=== PATIENT | male | born 1980 | race Caucasian/White ===

== ENCOUNTER 2017-05-08 16:00 | Inpatient (IN) | payer OTHER ==
[~2017-05-08] VITALS: Ht 167.6 cm; Wt 81.6 kg
--- NOTE | ~2017-05-08 | EKG ---
PATIENT: BRANT MADSEN UNIT #: [id number] Ventricular Rate: 67 BPM Atrial Rate: 67 BPM P-R Interval: 180 ms QRS Duration: 90 ms Q-T Interval: 414 ms QTC Calculation(Bezet): 437 ms P Buena: 42 degrees Calculated R Buena: 21 degrees Calculated T Buena: 29 degrees Diagnosis Line: Normal sinus rhythm Diagnosis Line: Normal ECG Diagnosis Line: No previous ECGs available Diagnosis Line: Confirmed by RONNIE BARRERA MD ([id number]) on Diagnosis Line: 05/12/2017 5:08:34 PM INTERPRETING MD: BRUCE GOLD
--- NOTE | ~2017-05-08 | HP ---
Unit #: [id number] #: [id number] Patient: BRANT MADSEN [id number] [place] [address] [id number] I MR#: [id number] NAME: BRANT MADSEN ROOM: [facility] [place] Age: 36 Sex: M Admission Date: 05/08/2017 : 1980 Attending Physician: Manav Mckeon M.D. Admitting Physician: Manav Mckeon M.D. Primary Care Physician: Generic Doctor Not In System HISTORY AND PHYSICAL HISTORY OF PRESENT ILLNESS The patient is a 36-year-old male who says he is here due to depression and being out of his medications for about 5 days. PAST MEDICAL HISTORY Significant for seizures and COPD. PAST SURGICAL HISTORY None. SOCIAL HISTORY Positive for smoking. ALLERGIES Tramadol, Toradol, and prednisone. FAMILY HISTORY Noncontributory. REVIEW OF SYSTEMS CONSTITUTIONAL: No fever or chills. HEENT: Denies any sore throat, ear pain or runny nose. CARDIOVASCULAR: Denies chest pain, irregular heart rhythm or palpitations. CHEST: Denies shortness of breath or cough. No hemoptysis. GASTROINTESTINAL: Denies nausea, vomiting, diarrhea or chronic constipation. ENDOCRINE: Denies history of increased thirst or urination. No recent significant weight loss or gain. GENITOURINARY: Denies dysuria, frequency, or hematuria. SKIN: Denies any rashes. HEMATOLOGIC: Denies history of increased bleeding or bruising. MUSCULOSKELETAL: Denies any hot, swollen joints. No generalized muscle pain. NEUROLOGIC: Denies problems with vision or speech. No frequent, severe headaches. No numbness, tingling or weakness in any extremities. Denies loss of bladder or bowel control. CURRENT MEDICATIONS 1. Spironolactone 25 mg twice daily. 2. Depakote 500 mg 3 times daily. 3. Coreg 25 mg twice daily. 4. Keppra 750 mg twice daily. 5. Isosorbide mononitrate 60 mg daily. Unit #: [id number] #: [id number] Patient: BRANT MADSEN 6. Tudorza 400 mcg twice daily. 7. Potassium ER 10 mEq twice daily. 8. Lisinopril HCTZ 20/25 daily. 9. Albuterol nebulizer q. 6 hours p.r.n. 10. Amlodipine 10 mg daily. 11. Ipratropium nebulizer 0.02% q. 4 hours p.r.n. 12. Dulera inhaler 2 puffs twice daily. 13. Methocarbamol 750 mg t.i.d. p.r.n. 14. Loratadine 25 mg p.o. twice daily. 15. Topamax 100 mg p.o. twice daily. 16. Amitriptyline 100 mg p.o. q.h.s. 17. Methadone 10 mg daily. 18. Imitrex 100 mg p.o. q. 2 hours p.r.n. not to exceed 2 in 24 hours. 19. Incruse inhaler daily. PHYSICAL EXAMINATION GENERAL: Alert, oriented, no acute distress. The patient somewhat tremulous. VITAL SIGNS: Temperature 97.9, blood pressure 107/73, heart rate 73, respirations 16. HEIGHT: 5 feet 6 inches. WEIGHT: 180 pounds. SKIN: Warm, dry. No rashes or lesions, track ring, cuts, etc. Multiple tattoos on right upper arm, left upper arm, chest, and right lower extremity. HEENT: Normocephalic. TMs not viewed. Oronasal passages clear. Conjunctivae clear. PERRLA. EOM is intact. NECK: No lymphadenopathy or thyromegaly. HEART: Regular rate and rhythm. No murmur, gallop, or rub. LUNGS: Clear to auscultation bilaterally. ABDOMEN: Soft, nontender without palpable masses or hepatosplenomegaly. : Not assessed. EXTREMITIES: No evidence of cyanosis, clubbing, or edema. Moves all extremities independently without obvious deficit. NEUROLOGICAL: Grossly within normal limits. Cranial Nerves: II: Visual diego are intact. III, IV AND : Extraocular movements are intact. Pupils are equal, round and reactive to light. V: Facial sensation is grossly normal. VII: Facial movements and expression are normal. VIII: Auditory acuity grossly intact. IX, X: Uvula is midline. Phonation is normal. XI: Patient shrugs shoulders and turns head normally. XII: Tongue protrudes in the midline. Sensory and Motor Function: Sensory and motor sensation is grossly normal. Motor: moves all extremities well. Coordination: Gait is normal. Deep Tendon Reflexes: Intact. IMPRESSION Psychiatric admission. RECOMMENDATIONS PSYCHIATRIC: Per psychiatrist. MEDICAL: No contraindication to participating in facility's activities. MEDICAL PROGNOSIS Good. Unit #: [id number] #: [id number] Patient: BRANT MADSEN Dictated by... Paula James A.P.R.N. CGJ/bzg TD: 05/09/2017 15:12 JOB #: [id number] HISTORY AND PHYSICAL Page 1 of 1 X Paula James APR X HISTORY AND PHYSICAL
--- NOTE | ~2017-05-08 | CO ---
Unit #: [id number] #: [id number] Patient: ADONIS MADSEN [id number] [facility] [address] [place] [address] [id number] I MR#: [id number] NAME: ADONIS MADSEN ROOM: [facility] Age: 36 Sex: M Admission Date: 05/08/2017 : 1980 Attending Physician: Manav Mckeon M.D. Primary Care Physician: Maday Doctor Not In System Consultation Date: 05/11/2017 CONSULTATION REPORT This is a followup to the original consult. HISTORY OF PRESENT ILLNESS Adonis reports that he had been treated for elevated blood pressure per his med rec. He was taking lisinopril, Aldactone, Coreg, Imdur, Norvasc and clonidine; however, during this admission, his blood pressures have been low. This morning, his blood pressures are 90/48, 90/58, 108/58, 90/52, and heart rates have been 65, 58 and 65. He does report feeling lightheaded if he moves too quickly and has been trying to rest and increase his fluid intake. He does also report a history of blacking out and waking up lying on the floor. He has no complaints. PHYSICAL EXAMINATION CARDIAC: Regular rate and rhythm. No murmurs, gallops, or rubs. RESPIRATORY: Clear to auscultation bilaterally. ASSESSMENT AND PLAN Hypotension. We will continue to check blood pressures; however, at this time, we can change blood pressure checks to every 2 hours while awake. He also will use a wheelchair and he understands the risks of moving too quickly. Please notify if blood pressures continue to fall, we will continue to hold all of his blood pressure medications until further evaluated. Dictated by... Maura Nguyen/olivia TD: 05/12/2017 00:37 JOB #: [id number] CONSULTATION REPORT Page 1 of 1 X NIHARIKA AMIN APRN X CONSULTATION REPORT
--- NOTE | ~2017-05-08 | CO ---
Unit #: [id number] #: [id number] Patient: BRANT MADSEN [id number] [facility] [address] [place] [address] [id number] I MR#: [id number] NAME: BRANT MADSEN ROOM: [facility] Age: 36 Sex: M Admission Date: 05/08/2017 : 1980 Attending Physician: Manav Mckeon M.D. Primary Care Physician: Generic Doctor Not In System CONSULTATION REPORT REASON FOR CONSULT Patient use of multiple inhalers. SUBJECTIVE "I have COPD and I have lots of inhalers and mini-nebulizers that I use." OBJECTIVE Vital signs within normal limits. Noted patient on ipratropium, Dulera, Incruse, albuterol inhaler, Tudorza, albuterol nebulizer. ASSESSMENT Chronic obstructive pulmonary disease with duplicate inhaler use. PLAN Patient will stop Tudorza. May continue other inhalers as ordered. Dictated by... Maura Fabian/fabiana TD: 05/09/2017 16:37 JOB #: [id number] CONSULTATION REPORT Page 1 of 1 X Paula James APR X CONSULTATION REPORT
--- NOTE | ~2017-05-08 | DS ---
Unit #: [id number] #: [id number] Patient: BRANT MADSEN [id number] [facility] [address] [place] [address] [id number] I MR#: [id number] NAME: BRANT MADSEN ROOM: [facility] Age: 36 Sex: M Admission Date: 05/08/2017 : 1980 Discharge Date: 05/11/2017 Attending Physician: Manav Mckeon M.D. DISCHARGE SUMMARY REASON FOR ADMISSION The patient is a 36-year-old white male admitted to the [facility] unit after presenting to [facility] voicing suicidal ideation. HOSPITAL COURSE The patient was admitted to the [facility] unit and placed on suicide precautions. All home medications were continued. A med consult was ordered secondary to the patient's multiple antihypertensives and inhalants. The patient did exhibit some blood pressure instability on May 10, and all antihypertensives were held with the patient being instructed to consult with his primary care physician once discharged regarding reinitiation of these medications. Otherwise, the patient's stay in the hospital was a brief and uneventful one. His participation was poor, but he denied any suicidal ideation and exhibited no signs or symptoms of psychosis or depressed mood when seen by this physician on May 11, and arrangements were made for the patient to return to his hometown of [place], [place], the following day. FINAL DIAGNOSES 1. Methamphetamine use disorder. 2. Mood disorder unspecified. 3. Seizure disorder. 4. Hypertension. 5. Chronic obstructive pulmonary disease. DISPOSITION ON DISCHARGE The patient will continue previously prescribed medications including Depakote 500 mg 3 times daily for seizure disorder, Coreg 25 mg twice daily for hypertension, Keppra 750 mg twice daily for seizure disorder, Imdur ER 60 mg once daily for hypertension, Klor-Con 10 at 1 twice daily for potassium supplementation, Norvasc 10 mg once daily for hypertension, Robaxin 750 mg 3 times daily for muscle relaxation, Imitrex 100 mg p.r.n. headache, DuoNeb 3 mL q.4 hours p.r.n. shortness of air, Atrovent 2.5 mg p.r.n. shortness of air, Symbicort 2 puffs twice daily for COPD, Zestril 20 mg at bedtime p.r.n. for hypertension, Proventil HFA 2 puffs q.4 hours p.r.n. shortness of air, and Oretic 25 mg once daily for hypertension. DISCHARGE INSTRUCTIONS No dietary or physical restrictions were placed on the patient at the time of discharge. FOLLOWUP Followup will take place through the auspices of [facility]. Unit #: [id number] #: [id number] Patient: BRANT MADSEN PROGNOSIS His prognosis is considered fair. Dictated by... Manav Mckeon M.D. SUSANNA/rina TD: 05/11/2017 14:24 JOB #: [id number] DISCHARGE SUMMARY Page 1 of 1 X Manav Mckeon MD X DISCHARGE SUMMARY
--- NOTE | ~2017-05-08 | PN ---
Unit #: [id number] #: [id number] Patient: BRANT MADSEN [id number] [facility] [address] [place] [address] [id number] MR#: [id number] NAME: BRANT MADSEN ROOM: [facility] Age: 36 Sex: M Admission Date: 05/08/2017 : 1980 Attending Physician: Manav Mckeon M.D. Admitting Physician: Manav Mckeon M.D. Primary Care Physician: Generic Doctor Not In System [facility] PROGRESS NOTES DATE 05/10/2017 DISCUSSION I have been able to speak with the patient today regarding the circumstances of his admission to the hospital. It would appear that his reasons for being hospitalized are more social and legal in nature than related to any true risk of detox or acute depressive or suicidal symptoms. Accordingly I have told this patient to expect a.m. discharge. Dictated by... Manav Mckeon M.D. CB/silver TD: 05/11/2017 01:32 JOB #: [id number] [facility] PROGRESS NOTES Page 1 of 1 X Manav Mckeon MD PROGRESS NOTE
--- NOTE | ~2017-05-08 | PA ---
Unit #: [id number] #: [id number] Patient: BRANT MADSEN [id number] [facility] [address] [place] [address] [id number] I MR#: [id number] NAME: BRANT MADSEN ROOM: [facility] Age: 36 Sex: M Admission Date: 05/08/2017 : 1980 Date of Assessment: 05/09/2017 Attending Physician: Manav Mckeon M.D. Admitting Physician: Manav Mckeon M.D. Primary Care Physician: Generic Doctor Not In System PSYCHIATRIC ASSESSMENT IDENTIFYING INFORMATION The patient is a 36-year-old white female admitted after he presented to [facility] voicing suicidal ideation. CHIEF COMPLAINT None given. INFORMANT(S) Chart. Patient cannot be aroused for interview. HISTORY OF PRESENT ILLNESS The patient is a 36-year-old white male [facility] in transfer from [facility]. He had presented there reporting positive suicidal ideation. The patient was reportedly released from senior living early this week and is supposed to report to a [facility]. The patient has significant legal issues and apparently has been unable to satisfy the demands of his probation. The patient's legal charges include assaults, possession of controlled substance, possession of methamphetamine, and possession of marijuana. When seen today, the patient cannot be aroused for interview. PAST PSYCHIATRIC HISTORY There is no reported prior history of psychiatric treatment. PAST MEDICAL HISTORY Significant for history of seizure disorder and COPD. MEDICATIONS The patient has an extremely lengthy list of medications including spironolactone, Depakote, Coreg, Keppra, isosorbide, Tudorza, potassium, lisinopril, albuterol, amlodipine, ipratropium, Dulera, methocarbamol, lamotrigine, Topamax, amitriptyline, methadone, Imitrex, Incruse, and albuterol. ALLERGIES Ketorolac, prednisone, tramadol. FAMILY HISTORY Not obtained. SOCIAL HISTORY The patient is apparently living in a local alf house. He reportedly "snorted 2 methadones" shortly prior to coming to the hospital and has a Unit #: [id number] #: [id number] Patient: MADSEN,BRANT significant substance abuse history. His legal history is described previously. 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 MENTAL STATUS EXAMINATION Examination at this time reveals the patient to be a soundly sleeping white male. Attempts to arouse the patient are unsuccessful. ASSETS AND LIABILITIES The patient's assets are to be assessed. Liabilities: Probable sociopathy and health issues. DIAGNOSTIC IMPRESSION 1. Opioid-induced disorder. 2. Methamphetamine use disorder by history. 3. Dysthymic disorder. 4. Antisocial personality traits versus disorder. 5. Seizure disorder. 6. Chronic obstructive pulmonary disease. 7. Hypertension. TREATMENT PLAN The patient remains hospitalized for safety and stabilization. I will ask for a medical consult related to the patient's multiple medications, particularly the multiple inhalers which she has prescribed. A routine detoxification protocol for opioids will be initiated, and suicide precautions level [address] will transfer the patient to a substance abuse unit given his significant substance abuse history. ESTIMATED LENGTH OF STAY 3 to 5 days. Dictated by... Manav Mckeon M.D. SUSANNA/nereyda TD: 05/09/2017 12:15 JOB #: [id number] PSYCHIATRIC ASSESSMENT Page 1 of 1 X Manav Mckeon MD X PSYCHIATRIC ASSESSMENT
== END 2017-05-12 13:23 | DRG 897 ==
LOC: P2L 20:19 → P1E 20:19 → P2L 20:37 → P1E 05-09 15:23
PROC: HZ2ZZZZ Detoxification Services for Substance Abuse Treatment (ICD-10-PCS; principal; 2017-05-08)
DX: F11.24 Opioid dependence with opioid-induced mood disorder (principal); R45.851 Suicidal ideations; I95.9 Hypotension, unspecified; F34.1 Dysthymic disorder; F60.2 Antisocial personality disorder; G40.909 Epilepsy, unspecified, not intractable, without status epilepticus; J44.9 Chronic obstructive pulmonary disease, unspecified; I10 Essential (primary) hypertension; Z88.8 Allergy status to other drugs, medicaments and biological substances; F17.200 Nicotine dependence, unspecified, uncomplicated; F15.10 Other stimulant abuse, uncomplicated; F39 Unspecified mood [affective] disorder
CPT/HCPCS: 80164; 82140; 86592; 93005